=== PATIENT | female | born 1985 | race Caucasian/White ===

== ENCOUNTER 2018-09-28 03:14 | Emergency (ER) | payer OTHER ==
[~2018-09-28] VITALS: Ht 147.3 cm; Wt 40.4 kg
[2018-09-28] MEDS ORDERED: [UNRECOGNIZED DRUG - OTHER] (03:24)
[2018-09-28] MEDS ORDERED: MAPAP240 MG/7.5 PO (03:25)
[2018-09-28] MEDS ORDERED: IBUPROFEN 400400 M2 PO (03:26)
[2018-09-28] MEDS ORDERED: FLEXERIL PO ×2 (03:37→05:22)
[2018-09-28 05:30] VITALS: BP 130/70
[2018-09-29] MEDS ORDERED: REGLAN 10 MG TA10 MG PO (18:12)
== END 2018-09-28 05:30 | disposition home or self-care (01) ==
LOC: ER 03:14
DX: G44.209 Tension-type headache, unspecified, not intractable (principal); M41.9 Scoliosis, unspecified

== ENCOUNTER 2018-09-29 16:35 | Emergency (ER) | payer OTHER ==
[~2018-09-29] VITALS: Ht 147.3 cm; Wt 39.9 kg
[~2018-09-29 16:35] MED LIST: FLEXERIL PO; IBUPROFEN 400400 M2 PO; MAPAP240 MG/7.5 PO; [UNRECOGNIZED DRUG - OTHER]
[2018-09-29 17:28] LABS: ABSOLUTE NEUTROPHILS 3.6 thou/uL (1.4-8.2); BASOPHILS 0.4 % (0.0-2.0); EOSINOPHILS 2.4 % (0.0-3.0); HEMATOCRIT 43.9 % (37.0-47.0); HEMOGLOBIN 14.9 gm/dL (12.0-15.0); LYMPHOCYTES 29.4 % (24.0-44.0); MCH 29.4 pg (26.0-34.0); MCV 86.4 fL (80.0-100.0); MONOCYTES 11.5 % (1.0-8.0); PLATELET COUNT 258 thou/uL (150-400); POLYS 56.3 % (36.0-66.0); RBC 5.08 mil/uL (4.20-5.00); RDW 13.2 % (10.5-14.5); WBC 6.5 thou/uL (4.0-11.0)
[2018-09-29 17:34] LABS: CREATININE 0.7 mg/dL (0.6-1.0); POTASSIUM 3.2 mmol/L (3.5-5.1)
[2018-09-29] MEDS ORDERED: REGLAN 10 MG TA10 MG PO (18:12)
[2018-09-29 18:43] VITALS: BP 124/79
== END 2018-09-29 18:44 | disposition home or self-care (01) ==
LOC: ER 16:35
PROVIDERS: Physician Assistant
DX: R51 Headache (principal); M41.9 Scoliosis, unspecified

== ENCOUNTER → 2020-09-17 | Outpatient (CLI) | payer OTHER ==
[~2020-09-17] MED LIST changes: +REGLAN 10 MG TA10 MG PO
== END ==
LOC: RAD 08:47
PROVIDERS: ATTEND Nurse Practitioner
DX: S62.525A Nondisplaced fracture of distal phalanx of left thumb, initial encounter for closed fracture (principal); S60.112A Contusion of left thumb with damage to nail, initial encounter; X58.XXXA Exposure to other specified factors, initial encounter; Y93.89 Activity, other specified; Y92.89 Other specified places as the place of occurrence of the external cause; Y99.8 Other external cause status

== ENCOUNTER → 2021-08-27 | Outpatient (CLI) | payer OTHER ==
[2021-08-27 12:28] LABS: URINE BILIRUBIN NEGATIVE (Negative); URINE BLOOD NEGATIVE (Negative); URINE CLARITY CLEAR; URINE COLOR YELLOW; URINE GLUCOSE-RANDOM* NEGATIVE (Negative); URINE KETONES NEGATIVE (Negative); URINE NITRITE-REFLEX NEGATIVE (Negative); URINE PROTEIN (DIPSTICK) NEGATIVE (Negative); URINE SPECIFIC GRAVITY <= 1.005 (1.005-1.035); URINE UROBILINOGEN 0.2 E.U./dl (0.2-1.0)
[2021-08-27 12:32] LABS: URINE LEUKOCYTES-REFLEX 1+ (Negative)
[2021-08-27 13:45] LABS: BACTERIA-REFLEX 1-9 Few /HPF (None Seen); CASTS None Seen /LPF (None Seen); CRYSTALS None Seen /LPF (None Seen); SQUAMOUS 0-3 Few /LPF (0-3); URINE RBC None Seen /HPF (NONE SEEN); URINE WBC-REFLEX 6-15 Few /HPF (0-5)
[2021-08-27 14:46] LABS: ALBUMIN 3.6 g/dL (3.4-5.0); ANION GAP 13 mmol/L (7-16); BUN 10 mg/dL (7-18); CALCIUM 8.9 mg/dL (8.5-10.1); CHLORIDE 104 mmol/L (98-107); CHOLESTEROL 175 mg/dL (<200); CO2 24 mmol/L (21-32); CREATININE 0.6 mg/dL (0.6-1.0); GLUCOSE 81 mg/dL (74-106); HDL CHOLESTEROL 57 mg/dL (>40); LDL CHOLESTEROL 92 mg/dL (<100); SGOT 20 U/L (15-37); SGPT 31 U/L (30-65); SODIUM 141 mmol/L (136-145); TC:HDL 3.1 Ratio (Not establshd); TOTAL BILIRUBIN 0.4 mg/dL (0.2-1.0); TOTAL PROTEIN 7.8 g/dL (6.4-8.2); TRIGLYCERIDE 130 mg/dL (<150); VLDL 26 mg/dL (<40)
== END ==
LOC: LAB 09:49
PROVIDERS: ATTEND Family Medicine
DX: Z00.00 Encounter for general adult medical examination without abnormal findings (principal)